=== PATIENT | female | born 1990 | race American Indian/Alaskan Native ===

== ENCOUNTER 2019-05-25 07:50 | Inpatient (IN) | payer MEDICAID ==
[2019-05-25] MEDS ORDERED: LACTATED RINGERS 500 ML IV ONE (09:00)
--- NOTE | 2019-05-25 09:19 | History and Physical Report ---
History of Present Illness Date of examination: 05/25/19 Date of admission: 05/25/19 Chief complaint: leaking fluid History of present illness: This is a 28 yo at 35 weeks with grossly ruptured. Patient is a patient of [facility] Past History Past Medical History: hematologic disorders (anemia) Past Surgical History: no surgical history Family/Genetic History: none Social history: single. denies: smoking, alcohol abuse, prescription drug abuse - Obstetrical History Expected Date of Delivery: 06/27/19 Actual Gestation: 35 Week(s) 2 Day(s) : 3 Para: 2 Hx # Term Pregnancies: 2 Number of Pregnancies: 0 Spontaneous Abortions: 0 Induced : 0 Number of Living Children: 2 Medications and Allergies Allergies Allergy/AdvReac Type Severity Reaction Status Date / Time No Known Allergies Allergy Verified 05/25/19 08:46 Home Medications Medication Instructions Recorded Confirmed Last Taken Type Multivitamin Tablet 1 tab PO DAILY 05/25/19 05/25/19 05/24/19 22:00 History 1 Active Meds: Active Medications Lactated Ringer's (Lactated Ringers) 500 mls @ 999 mls/hr IV BOLUS ONE Stop: 05/25/19 09:30 Review of Systems All systems: negative Genitourinary: leakage of fluid - Vital Signs Vital signs: Vital Signs Pulse BP 61 123/71 05/25/19 08:12 05/25/19 08:12 Temp Pulse Resp BP Pulse Ox 97.7 F 61 16 123/71 05/25/19 08:23 05/25/19 08:23 05/25/19 08:23 05/25/19 08:23 - Physical Exam Breasts: Positive: normal Cardiovascular: Regular rate, Normal S1 Lungs: Positive: Clear to auscultation, Normal air movement Abdomen: Positive: normal appearance, soft, normal bowel sounds. Negative: di stention, tenderness, guarding Vagina: Positive: normal moisture Uterus: Positive: normal size, normal contour Anus/Rectum: Positive: normal perianal skin Extremities: Positive: normal Deep Tendon Reflex Grade: Normal +2 - Obstetrical FHR: category 1 Cervical Dilatation: 2 Cervical Effacement Percentage: 50 station: -3 Uterine Contraction Pattern: Regular Uterine Tone Measurement Phase: Contraction Uterine Contraction Intensity: Mild Results Result Diagrams: 05/25/19 09:15 All other labs normal. Assessment and Plan A/P IUP 35 weeks Grossly ruptured admit IVF and abx intitated betamethasone for lung maturity consult with [facility] consult with [facility] plan for delivery
[2019-05-25] MEDS ORDERED: TYLENOL PO PRN (09:30)
[2019-05-25] MEDS ORDERED: BENADRYL PO PRN (09:30)
[2019-05-25 09:42] LABS: Basophils % (Auto) 0.5 % (0.0-1.8); Eosinophils % (Auto) 0.3 % (0.0-4.3); Hematocrit 30.2 % (30.3-42.9); Hemoglobin 9.7 gm/dl (10.1-14.3); Lymphocytes # (Auto) 1.9 K/mm3 (1.2-5.4); Lymphocytes % (Auto) 26.1 % (13.4-35.0); Mean Corpuscular HGB Conc 32 % (30-34); Mean Corpuscular Volume 88 fl (79-97); Monocytes # (Auto) 0.7 K/mm3 (0.0-0.8); Monocytes % (Auto) 9.8 % (0.0-7.3); Platelet Count 223 K/mm3 (140-440); Red Blood Count 3.42 M/mm3 (3.65-5.03); Red Cell Distribution Width 14.5 % (13.2-15.2)
[2019-05-25] MEDS: PRENATAL VITAMIN PO SCH (09:59)
[2019-05-25] MEDS ORDERED: DEEP SEA NS PRN (10:00)
[2019-05-25] MEDS ORDERED: SUDAFED PO PRN (10:00)
[2019-05-25] MEDS ORDERED: SODIUM CHLORIDE FLUSH SYRINGE 10 ML IV PRN (10:00)
[2019-05-25] MEDS ORDERED: TUCKS PAD TP PRN (10:00)
[2019-05-25] MEDS ORDERED: ZOFRAN IV PRN (10:00)
[2019-05-25] MEDS ORDERED: LACTATED RINGERS 1,000 ML IV SCH (10:00)
[2019-05-25] MEDS ORDERED: MYLICON PO PRN (10:00)
[2019-05-25] MEDS ORDERED: ALUM-MAG HYDROX-SIMETH 200-200-20MG/5ML PO PRN (10:00)
[2019-05-25] MEDS: AMPICILLIN/NS 2 GM/100 ML 2 GM/100 ML BAG IV SCH ×2 (10:00→16:00)
[2019-05-25] MEDS ORDERED: MILK OF MAGNESIA PO PRN (10:00)
[2019-05-25] MEDS ORDERED: COLACE PO PRN (10:00)
[2019-05-25] MEDS ORDERED: CELESTONE SOLUSPAN IM SCH (10:00)
--- NOTE | 2019-05-25 10:11 | Event Note ---
Date: 05/25/19 05/25/19 [facility] Chart review : IUP of 35.2 weeks Patient recently admitted by Dr. Lorna Rodriguez No ultrasound available for review Confirm EGA With CONFIRMED PROM of IUP greater than 34 weeks PER ACOG the standard timing of delivery LATE : [address] Lorna Rodriguez was called Lawrence BURGOS/ Dr. Mcintosh
[2019-05-25] MEDS ORDERED: AMBIEN PO PRN (11:00)
--- NOTE | 2019-05-25 11:34 | Ultrasound Report ---
ULTRASOUND OB LIMITED ULTRASOUND OB BIOPHYSICAL PROFILE HISTORY: Premature rupture of membranes at 35 weeks, well-being, evaluate AGVIN. TECHNIQUE: Transabdominal grayscale imaging with color Doppler interrogation. FINDINGS: A single intrauterine is identified in cephalic position. heart rate ranges from 150- 161 bpm. The placenta is fundal, grade 1. GAVIN measures 9.2 cm. The cervix is obscured. breathing movements: 2 movements: 2 posterior and tone: 0 Qualitative amniotic fluid volume: 2 IMPRESSION: GAVIN measures 9.2. Biophysical profile score 6/8. Signer Name: Rito Brooke Jr, MD Signed: 05/25/2019 11:29 AM Workstation Name: [id number]
--- NOTE | 2019-05-25 11:34 | Ultrasound Report ---
ULTRASOUND OB LIMITED ULTRASOUND OB BIOPHYSICAL PROFILE HISTORY: Premature rupture of membranes at 35 weeks, well-being, evaluate GAVIN. TECHNIQUE: Transabdominal grayscale imaging with color Doppler interrogation. FINDINGS: A single intrauterine is identified in cephalic position. heart rate ranges from 150- 161 bpm. The placenta is fundal, grade 1. GAVIN measures 9.2 cm. The cervix is obscured. breathing movements: 2 movements: 2 posterior and tone: 0 Qualitative amniotic fluid volume: 2 IMPRESSION: GAVIN measures 9.2. Biophysical profile score 6/8. Signer Name: Rito Brooke Jr, MD Signed: 05/25/2019 11:29 AM Workstation Name: [id number]
[2019-05-25] MEDS: ERYTHROMYCIN LACTOBIONATE 250 MG in NACL 0.9% 100 ML IV SCH ×2 (12:11→18:03)
[2019-05-25 13:16] LABS: Bilirubin,Urine NEG (Negative); Blood,Urine NEG (Negative); Color,Urine Yellow (Yellow); Mucus,Urine FEW /HPF; Urobilinogen,Urine < 2.0 mg/dL (<2.0)
[2019-05-25] MEDS: PITOCin/NS 30 UNIT/500ML 30 UNITS/500 ML BAG IV SCH ×2 (16:00→21:01)
[2019-05-25] MEDS ORDERED: NARCAN 2 MG/2 ML IV PRN (16:15)
--- NOTE | 2019-05-25 16:19 | Anesthesia Consultation ---
Anesthesia Consult and Med Hx Date of service: 05/25/19 - Airway Anesthetic Teeth Evaluation: Good ROM Head & Neck: Adequate Mental/Hyoid Distance: Adequate Mallampati Class: Class II Intubation Access Assessment: Probably Good - Pulmonary Exam CTA: Yes - Cardiac Exam Cardiac Exam: RRR - Pre-Operative Health Status ASA Pre-Surgery Classification: ASA2 Proposed Anesthetic Plan: Epidural - Pulmonary Hx Smoking: No Hx Asthma: No Hx Respiratory Symptoms: No SOB: No COPD: No Home Oxygen Therapy: No Hx Pneumonia: No Hx Sleep Apnea: No - Cardiovascular System Hx Hypertension: No Hx Coronary Artery Disease: No Hx Heart Attack/AMI: No Hx Angina: No Hx Percutaneous Transluminal Coronary Angioplasty (PTCA): No Hx Cardia Arrhythmia: No Hx Pacemaker: No Hx Internal Defibrillator: No Hx Valvular Heart Disease: No Hx Heart Murmur: No Hx Peripheral Vascular Disease: No - Central Nervous System Hx Neuromuscular Disorder: No Hx Seizures: No CVA: No Hx Back Pain: No Hx Psychiatric Problems: No - Gastrointestinal Hx Ulcer: No Hx Gastroesophageal Reflux Disease: No - Endocrine Hx Renal Disease: No Hx End Stage Renal Disease: No Hx Cirrhosis: No Hx Liver Disease: No Hx Insulin Dependent Diabetes: No Hx Non-Insulin Dependent Diabetes: No Hx Thyroid Disease: No Hx Hypothyroidism: No Hx Hyperthyroidism: No - Hematic Hx Anemia: No Hx Sickle Cell Disease: No - Other Systems Hx Alcohol Use: No Hx Substance Use: No Hx Cancer: No Hx Obesity: No
[2019-05-25] MEDS: fentaNYL-BUPIV 2 MCG/ML-0.125% 200 MCG/100 ML BAG EPIDURAL SCH (17:26)
[2019-05-25] MEDS: AMPICILLIN/NS 1 GM/50 ML 1 GM/50 ML BAG IV SCH (21:25)
[2019-05-26] MEDS: ERYTHROMYCIN LACTOBIONATE 250 MG in NACL 0.9% 100 ML IV SCH (00:07)
[2019-05-26] MEDS: fentaNYL-BUPIV 2 MCG/ML-0.125% 200 MCG/100 ML BAG EPIDURAL SCH (00:19)
[2019-05-26] MEDS: AMPICILLIN/NS 1 GM/50 ML 1 GM/50 ML BAG IV SCH (01:18)
[2019-05-26] MEDS ORDERED: PITOCin/NS 20 UNIT/1000ML DRIP 20,000 MILLIUNITS/1,000 ML BAG IV ONE (01:41)
--- NOTE | 2019-05-26 02:14 | Procedure Note ---
OB Delivery Note - Delivery Date of Delivery: 05/26/19 Surgeon: TOMI HOLLAND Estimated blood loss: other (150cc) - Vaginal Delivery presentation: vertex Delivery position: OA Intrapartum events: labor-<37 weeks Delivery induction: oxytocin Delivery augmentation: pitocin Delivery monitor: external FHT, external uterine Route of delivery: Delivery placenta: spontaneous Delivery cord: nuchal cord, 3 umbilical vessels Episiotomy: none Delivery laceration: none Anesthesia: none Delivery comments: Patient was noted to be c/c/+2 Patient commenced to pushing a viable male infant at 0152 with apgars 8 and 9. Prior to deolivery nuchal cord reduced. Placenta delivered intact with three vessel cord at 0156.No lacerations noted. The weight of the baby 5 pounds 14oz. EBL 150 cc. Patient tolerated procedure well. - Infant A at 1 minute: 8 at 5 minutes: 9 Infant Gender: Male (5 pounds 14 oz)
[2019-05-26] MEDS ORDERED: PHENERGAN PO PRN (02:21)
[2019-05-26] MEDS ORDERED: BENADRYL PO PRN (02:21)
[2019-05-26] MEDS ORDERED: MILK OF MAGNESIA PO PRN (02:21)
[2019-05-26] MEDS ORDERED: LANSINOH TP PRN (02:21)
[2019-05-26] MEDS ORDERED: TYLENOL PO PRN (02:21)
[2019-05-26] MEDS ORDERED: PHENERGAN PR PRN (02:21)
[2019-05-26] MEDS ORDERED: NORCO 5/325 PO PRN (02:21)
[2019-05-26] MEDS ORDERED: TORADOL IV PRN (02:21)
[2019-05-26] MEDS ORDERED: ZOFRAN IV PRN (02:21)
[2019-05-26] MEDS ORDERED: TUCKS PAD TP PRN (02:21)
[2019-05-26] MEDS ORDERED: DULCOLAX PR PRN (02:21)
[2019-05-26] MEDS ORDERED: PERCOCET 5/325 PO PRN (02:21)
[2019-05-26] MEDS ORDERED: SODIUM CHLORIDE FLUSH SYRINGE 10 ML IV NR (03:00)
[2019-05-26] MEDS ORDERED: PITOCin/NS 20 UNIT/1000ML DRIP 20 UNITS/1,000 ML BAG IV SCH (03:00)
[2019-05-26] MEDS: IBUPROFEN PO SCH ×4 (05:12→23:27)
[2019-05-26] MEDS: PRENATAL VITAMIN PO SCH (11:27)
[2019-05-26 15:01] LABS: Hematocrit 24.3 % (30.3-42.9)
[2019-05-26] MEDS ORDERED: BOOSTRIX IM ONE (23:00)
[2019-05-27] MEDS: IBUPROFEN PO SCH ×4 (05:26→23:34)
[2019-05-27] MEDS ORDERED: BOOSTRIX IM ONE (06:00)
[2019-05-27] MEDS ORDERED: M-M-R II VACCINE SUB-Q ONE (06:00)
--- NOTE | 2019-05-27 09:39 | Progress Note ---
Assessment and Plan A/P PPD#1 PTD/PPROM at 35 weeks Doing well routine pp care chronic anemia on iron Subjective - Subjective Date of service: 05/27/19 Principal diagnosis: Interval history: This is a 28 yo at 35 weeks with grossly ruptured. [facility] Patient reports: appetite normal, voiding normally, pain well controlled, flatus, ambulating normally [place]: doing well Objective - Vital Signs Latest vital signs: Vital Signs Temp Pulse Resp BP BP Pulse Ox 05/27/19 00:15 98.3 F 66 20 104/74 100 05/26/19 16:00 97.6 F 63 18 112/68 05/26/19 12:20 98 F 66 18 92/63 Intake and Output 05/26/19 05/27/19 05/27/19 23:59 07:59 15:59 Intake Total 560 240 Output Total 1300 Balance -740 240 Intake: Oral 560 240 Output: Urine 1300 Void 1300 Other: Total, Intake Amount 240 240 Total, Output Amount 400 # Voids Void 1 1 - Exam Breasts: Present: normal Cardiovascular: Present: Regular rate, Normal S1 Lungs: Present: Clear to auscultation, Normal air movement Abdomen: Present: normal appearance, soft, normal bowel sounds. Absent: dist ention, tenderness, guarding Uterus: Present: normal, firm, fundal height below umbilicus. Absent: bogginess, tenderness Extremities: Present: normal Deep Tendon Reflex Grade: Normal +2 Incision: Present: normal - Labs Labs: Abnormal lab results 05/26/19 Range/Units 14:42 Hgb 8.0 L (10.1-14.3) gm/dl Hct 24.3 L (30.3-42.9) %
--- NOTE | 2019-05-27 09:41 | Discharge Summary ---
Providers - Providers Date of Admission: 05/25/19 09:34 Date of discharge: 05/28/19 Attending physician: TOMI HOLLAND MD 05/25/19 09:05 Consult to Physician [CONS] Routine Comment: Consulting Provider: JILL MOON Physician Instructions: Reason For Exam: pprom, 35 weeks Primary care physician: TOMI HOLLAND MD Hospitalization Reason for admission: IUP - , rupture of membranes Delivery: Episiotomy: none Laceration: none Incision: normal, dry Other procedures: none complications: none Discharge diagnosis: IUP at term delivered baby: male Hospital course: Patient PPROm at 35 weeks. Given steroids and amp and delivered a viable infant. Condition at discharge: Good Disposition: DC-01 TO HOME OR SELFCARE Plan - Discharge Medications Prescriptions: Ferrous Sulfate [Feosol 325 MG tab] 325 mg PO BID #30 tablet Ibuprofen [Motrin] 600 mg PO Q8H PRN #30 tablet PRN Reason: Pain oxyCODONE /ACETAMINOPHEN [Percocet 5/325] 1 tab PO Q6HR PRN #20 tablet PRN Reason: Pain - Provider Discharge Summary Activity: routine, no sex for 6 weeks, no strenuous exercise Diet: routine Instructions: routine Additional instructions: [] Smoking cessation referral if applicable(refer to patient education folder for contact #) [] Refer to [facility]'s [facility] Booklet Call your doctor immediately for: * Fever > 100.5 * Heavy vaginal bleeding ( >1 pad per hour) * Severe persistent headache * Shortness of breath * Reddened, hot, painful area to leg or breast * Drainage or odor from incision. * Keep incision clean and dry at all times and follow doctor's instructions regarding bathing/showering - Follow up plan Follow up: TOMI HOLLAND MD [Primary Care Provider] - 06/22/19
[2019-05-27] MEDS: PRENATAL VITAMIN PO SCH (12:18)
[2019-05-27] MEDS: SENOKOT S PO PRN (12:21)
[2019-05-27] MEDS: FEOSOL PO SCH ×2 (12:22→23:35)
[2019-05-28] MEDS: IBUPROFEN PO SCH (06:04)
[2019-05-28] MEDS: FEOSOL PO SCH (10:22)
[2019-05-28] MEDS: PRENATAL VITAMIN PO SCH (10:22)
[2019-05-28] MEDS: SENOKOT S PO PRN (10:27)
[2019-05-28 16:57] VITALS: BP 114/72
== END 2019-05-28 16:25 | disposition home or self-care (01) | DRG 775 ==
LOC: TRG 07:50 → LD 09:34 → OB 05-26 04:25
PROVIDERS: ADMIT Obstetrics & Gynecology; ATTEND Obstetrics & Gynecology
PROC: 10E0XZZ Delivery of Products of Conception, External Approach (ICD-10-PCS; principal; 2019-05-26)
PROC: 3E033VJ Introduction of Other Hormone into Peripheral Vein, Percutaneous Approach (ICD-10-PCS; 2019-05-26)
PROC: 3E0234Z Introduction of Serum, Toxoid and Vaccine into Muscle, Percutaneous Approach (ICD-10-PCS; 2019-05-27)
DX: O60.14X0 Preterm labor third trimester with preterm delivery third trimester, not applicable or unspecified (principal); O69.1XX0 Labor and delivery complicated by cord around neck, with compression, not applicable or unspecified; O99.02 Anemia complicating childbirth; D64.9 Anemia, unspecified; Z23 Encounter for immunization; Z3A.35 35 weeks gestation of pregnancy; Z37.0 Single live birth
CPT/HCPCS: 36415; 59025; 76815; 76819; 81001; 85014; 85018; 85025; 86850; 86900; 86901; 90471; 90715; G0378; J0290; J0702; J1364; J2590; J7120

== ENCOUNTER 2019-09-04 11:07 | Day surgery (SDC) | payer MEDICAID ==
[2019-09-04] MEDS ORDERED: SUBLIMAZE IV PRN (11:56)
--- NOTE | 2019-09-04 11:56 | Anesthesia Day of Surgery ---
Anesthesia Day of Surgery - Day of Surgery Patient Examined: Yes Patient H&P Reviewed: Yes Patient is NPO: Yes
--- NOTE | 2019-09-04 11:56 | Anesthesia Consultation ---
Anesthesia Consult and Med Hx Date of service: 09/04/19 - Airway Anesthetic Teeth Evaluation: Good (permanent upper retainer) ROM Head & Neck: Adequate Mental/Hyoid Distance: Adequate Mallampati Class: Class II Intubation Access Assessment: Probably Good - Pulmonary Exam CTA: Yes - Cardiac Exam Cardiac Exam: RRR - Pre-Operative Health Status ASA Pre-Surgery Classification: ASA1 Proposed Anesthetic Plan: MAC - Pulmonary Hx Smoking: No - Cardiovascular System Hx Hypertension: No - Central Nervous System CVA: No - Gastrointestinal Hx Gastroesophageal Reflux Disease: No - Endocrine Hx Renal Disease: No Hx Liver Disease: No Hx Insulin Dependent Diabetes: No Hx Non-Insulin Dependent Diabetes: No Hx Thyroid Disease: No - Other Systems Hx Obesity: No
[2019-09-04] MEDS ORDERED: TRANSDERM-SCOP TD NR (12:00)
[2019-09-04] MEDS ORDERED: VERSED IV NR (12:00)
[2019-09-04] MEDS ORDERED: LACTATED RINGERS 1,000 ML IV SCH (12:00)
[2019-09-04] MEDS ORDERED: LUGOL'S SOLUTION 5% TP ONE (12:54)
[2019-09-04] MEDS ORDERED: MONSEL'S TP ONE ×2 (12:54→13:35)
[2019-09-04] MEDS ORDERED: XYLOCAINE MPF 2% ONE (13:00)
[2019-09-04] MEDS ORDERED: SUBLIMAZE ONE (13:00)
[2019-09-04] MEDS ORDERED: DIPRIVAN 10 MG/ML IV ONE (13:00)
[2019-09-04] MEDS ORDERED: DECADRON ONE (13:21)
[2019-09-04] MEDS ORDERED: ZOFRAN ONE (13:21)
[2019-09-04] MEDS ORDERED: PHENYLEPHRINE/NS Syringe 1,000 MCG/10 ML IV ONE (13:23)
[2019-09-04] MEDS ORDERED: SILVER NITRATE TP ONE (13:35)
[2019-09-04] MEDS ORDERED: THERMAZENE 50 GRAM TP ONE (13:36)
--- NOTE | 2019-09-04 13:48 | Operative Report ---
Operative Report Operative Report: DATE OF OPERATION: 09/04/19 POSTOPERATIVE DIAGNOSIS: Cervical intraepithelial neoplasia, grade 2 OPERATION PERFORMED: Loop electrosurgical excision procedure SURGEON:Yeni Rodriguez MD ANESTHESIA: General anesthesia. INDICATIONS FOR PROCEDURE: The patient is a 29-year-old G1 with a history of abnormal Pap smear. A colposcopy demonstrated REGINE 2 . The patient has no significant past medical history. OB history: The patient is multilliparous. The patient was advised to undergo a LEEP procedure All risks and benefits were discussed with the patient including potential risk of labor, cervical incompetence and premature rupture of membranes should she become in the future. The patient accepted these risks. All questions were answered and the patient was taken to the operating room in stable condition. PERTINENT FINDINGS: Bimanual examination revealed a normal sized midline uterus with no adnexal masses palpated. Cervix did not appear to have any gross masses. SPECIMENS: Ectocervix , endocervical specimen from the top hat Minimal. IV FLUIDS: 600 mL of lactated Ringer's. DESCRIPTION OF PROCEDURE: The patient was taken to the OR where she was placed under general anesthesia without difficulty. She was then prepped and draped in the usual sterile fashion and placed in the dorsal lithotomy position. A preoperative bimanual examination revealed findings as above. A preoperative beta quantitative test was negative for as well. At this time, the large Graves speculum was placed in the vagina. The large loop electrode was used to remove the anterior or top portion of the cervix and a separate posterior specimen was excised and sent to pathology. The smallest loop electrode was used to obtain a top hat for excision of the endocervix.
[2019-09-04] MEDS ORDERED: PERCOCET 5/325 PO PRN (13:56)
[2019-09-04 17:47] VITALS: BP 121/78
--- NOTE | 2019-09-04 21:17 | Post Anesthesia Evaluation ---
- Post Anesthesia Evaluation Patient Participated: Yes Airway Patent: Yes Stable Respiratory Function: Yes Nausea/Vomiting: No Temp > 96.8F: Yes Pain Manageable: Yes Adequeate Hydration: Yes Anesthesia Complications: No Block Receding Appropriately: Not Applicable Patient on Ventilator: No
== END 2019-09-04 15:05 | disposition home or self-care (01) ==
LOC: OR 11:07
PROVIDERS: ATTEND Obstetrics & Gynecology
DX: N87.1 Moderate cervical dysplasia (principal); Z79.899 Other long term (current) drug therapy; Z83.3 Family history of diabetes mellitus; Z82.49 Family history of ischemic heart disease and other diseases of the circulatory system
CPT/HCPCS: 57522; 81025; 88307; J1100; J2250; J2370; J2405; J2704; J3010; J7120